=== PATIENT | female | born 1970 | race Caucasian/White ===

== ENCOUNTER 2022-11-16 09:17 | Outpatient (CLI) | payer BC, SELFPAY ==
[2022-11-16 14:47] LABS: TSH With Reflex to FT4* < 0.015 uIU/mL (0.270-4.200)
[2022-11-16 15:02] LABS: Chloride* 105 mmol/L (96-114)
[2022-11-16 15:03] LABS: Potassium* 4.5 mmol/L (3.6-5.1); Sodium* 139 mmol/L (135-149)
[2022-11-16 15:05] LABS: Bilirubin Total* 0.4 mg/dL (0.1-1.5); Blood Urea Nitrogen* 22 mg/dL (7-30); Carbon Dioxide* 29 mmol/L (20-32); Cholesterol* 204 mg/dL (90-199); Creatinine* 0.7 mg/dL (0.5-1.5); Estimated Glomerular Filt Rate 104 ml/min; Glucose* 83 mg/dL (60-115); Total Protein* 6.6 g/dL (6.0-8.3)
[2022-11-16 15:06] LABS: Alanine Aminotransferase* 17 U/L (4-35); Alkaline Phosphatase* 71 U/L (40-150); Aspartate Amino Transferase* 22 U/L (12-35); Calcium* 9.4 mg/dL (8.4-10.6); HDL Cholesterol* 82 mg/dL (>=50); LDL Cholesterol Calculated 103 mg/dL (<100); Triglycerides* 95 mg/dL (40-149)
[2022-11-16 15:41] LABS: Free T4 Free Thyroxine* 0.08 ng/dL (0.70-1.85)
== END 2022-11-16 09:18 | disposition home or self-care (01) ==
PROVIDERS: PCP Physician Assistant Medical; Visit Provider Physician Assistant Medical
DX: E05.90 Thyrotoxicosis, unspecified without thyrotoxic crisis or storm (principal); F32.A Depression, unspecified; I10 Essential (primary) hypertension; N39.3 Stress incontinence (female) (male)
CPT/HCPCS: 80053; 80061; 84439; 84443

== ENCOUNTER 2023-04-26 07:43 | Outpatient (CLI) | payer OTHER, SELFPAY | END 2023-04-26 07:44 | disposition home or self-care (01) | LOC: NFLDREF 04-27 09:36 | PROVIDERS: PCP Physician Assistant Medical; Referring Provider Physician Assistant Medical; Visit Provider Physician Assistant Medical | DX: E05.90 Thyrotoxicosis, unspecified without thyrotoxic crisis or storm (principal); I10 Essential (primary) hypertension | CPT/HCPCS: 80048; 84443 ==